=== PATIENT | female | born 1980 | race African-American/Black ===

== ENCOUNTER 2017-04-08 06:34 | Emergency (ER) | payer MEDICAID ==
[~2017-04-08] VITALS: Ht 144.8 cm; Wt 56.0 kg
[~2017-04-08 06:34] MED LIST: ZOLOFT
[2017-04-08] MEDS ORDERED: AZITHROMYCIN 500 MG TABLET PO ONE (07:45)
[2017-04-08] MEDS ORDERED: CEFTRIAXONE SODIUM 250 MG/VIAL IM ONE (07:45)
[2017-04-08] MEDS ORDERED: LIDOCAINE HCL 1% 20ML VIAL (Pyxis) INJ INFIL ONE (07:45)
[2017-04-08 08:00] LABS: CLARITY URINE CLOUDY (CLEAR); COLOR URINE YELLOW (YELLOW); GLUCOSE URINE NEGATIVE (NEGATIVE); KETONES URINE TRACE (NEGATIVE); LEUKOCYTE ESTERASE URINE 2+ (NEGATIVE); NITRITE URINE NEGATIVE (NEGATIVE); OCCULT BLOOD URINE 2+ (NEGATIVE); PROTEIN URINE NEGATIVE (NEGATIVE); SPECIFIC GRAVITY URINE 1.019 (1.005-1.030); UROBILINOGEN URINE 0.2 E.U./dL (0.2-1.0)
[2017-04-08] MEDS ORDERED: DOXYCYCLINE HYCLATE 100MG CAPSULE PO ONE (08:00)
[2017-04-08 09:55] VITALS: BP 114/80
== END 2017-04-08 10:13 | disposition home or self-care (01) ==
LOC: ER 06:34
DX: N73.9 Female pelvic inflammatory disease, unspecified (principal); N39.0 Urinary tract infection, site not specified; G40.909 Epilepsy, unspecified, not intractable, without status epilepticus; F25.0 Schizoaffective disorder, bipolar type; J45.909 Unspecified asthma, uncomplicated; Z79.899 Other long term (current) drug therapy; Z91.018 Allergy to other foods
CPT/HCPCS: 81001; 81025; 87210; 96372; 99284; J0696; J3490; Z7610

== ENCOUNTER 2022-01-01 14:07 | Emergency (ER) | payer MEDICAID ==
[~2022-01-01] VITALS: Ht 152.4 cm; Wt 55.0 kg
[2022-01-01 14:14] VITALS: BP 160/88
[2022-01-01] MEDS ORDERED: HYDROCODONE/ACETAMINOPHEN 5/325MG TABLET PO ONE (14:45)
[2022-01-01] MEDS ORDERED: ACETAMINOPHEN 500MG TABLET PO ONE (16:00)
[2022-01-01] MEDS ORDERED: ACET-2708 MT (16:19)
[2022-01-01 16:53] LABS: CLARITY URINE CLOUDY (CLEAR); COLOR URINE YELLOW (YELLOW); KETONES URINE 2+ (NEGATIVE); LEUKOCYTE ESTERASE URINE NEGATIVE (NEGATIVE); NITRITE URINE NEGATIVE (NEGATIVE); OCCULT BLOOD URINE NEGATIVE (NEGATIVE); PROTEIN URINE 2+ (NEGATIVE); SPECIFIC GRAVITY URINE 1.027 (1.005-1.030)
[2022-01-01 17:23] LABS: *BARBITURATES SCREEN URINE NEGATIVE (NEGATIVE); *BENZODIAZEPINES SCREEN URINE NEGATIVE (NEGATIVE); METHADONE URINE SCREEN NEGATIVE (NEGATIVE); OPIATES URINE SCREEN NEGATIVE (NEGATIVE)
[2022-01-01 17:25] LABS: *AMPHETAMINES SCREEN URINE PRESUMTIVE POSITIVE (NEGATIVE)
[2022-01-01 17:26] LABS: *COCAINE SCREEN URINE PRESUMTIVE POSITIVE (NEGATIVE); CANNABINOID URINE SCREEN PRESUMTIVE POSITIVE (NEGATIVE); PHENCYCLIDINE URINE SCREEN PRESUMTIVE POSITIVE (NEGATIVE)
== END 2022-01-01 17:45 | disposition home or self-care (01) ==
LOC: ER 14:07
DX: S00.03XA Contusion of scalp, initial encounter (principal); S00.83XA Contusion of other part of head, initial encounter; S10.83XA Contusion of other specified part of neck, initial encounter; S20.219A Contusion of unspecified front wall of thorax, initial encounter; F20.9 Schizophrenia, unspecified; F31.9 Bipolar disorder, unspecified; F12.10 Cannabis abuse, uncomplicated; Z59.00 Homelessness unspecified; Z91.018 Allergy to other foods; Y08.89XA Assault by other specified means, initial encounter; Y07.03 Male partner, perpetrator of maltreatment and neglect; Y93.89 Activity, other specified; Y92.488 Other paved roadways as the place of occurrence of the external cause
CPT/HCPCS: 70486; 71045; 80305; 81003; 81025; 99285